=== PATIENT | male | born 1970 | race Two or more races ===

== ENCOUNTER 2024-06-01 22:43 | Emergency (ER) | payer OTHER ==
[~2024-06-01] VITALS: Ht 177.8 cm; Wt 81.6 kg
[2024-06-02] MEDS ORDERED: ACETAMINOPHEN ES 500 MG TABLET ONE (00:10)
[2024-06-02] MEDS ORDERED: CYCLOBENZAPRINE 10 MG TABLET ONE (00:10)
[2024-06-02] MEDS ORDERED: ONDANSETRON 4 MG TAB.RAPDIS ONE (00:11)
[2024-06-02] MEDS: ONDANSETRON 4 MG TAB.RAPDIS SL ONE (00:24)
[2024-06-02] MEDS: CYCLOBENZAPRINE 10 MG TABLET PO ONE (00:24)
[2024-06-02] MEDS: ACETAMINOPHEN ES 500 MG TABLET PO ONE (00:24)
[2024-06-02 01:34] VITALS: BP 121/82; TEMP 98; O2SAT 99
[2024-06-02] MEDS ORDERED: CYCL5TAB PO (01:45)
[2024-06-02] MEDS ORDERED: IBUP-1490 PO (01:45)
== END 2024-06-02 02:04 | disposition home or self-care (01) ==
LOC: ER 22:45
DX: R51.9 Headache, unspecified (principal); R11.2 Nausea with vomiting, unspecified; F19.10 Other psychoactive substance abuse, uncomplicated; V53.6XXA Passenger in pick-up truck or van injured in collision with car, pick-up truck or van in traffic accident, initial encounter; Y93.89 Activity, other specified; Y92.488 Other paved roadways as the place of occurrence of the external cause; Y99.8 Other external cause status
CPT/HCPCS: 99284; 70450; Q0162